=== PATIENT | male | born 1960 | race Caucasian/White ===

== ENCOUNTER 2024-08-17 15:35 | Emergency (ER) | payer BC ==
[~2024-08-17] VITALS: Ht 188 cm; Wt 71.7 kg
[2024-08-17 15:42] VITALS: TEMP 98
[2024-08-17] MEDS ORDERED: SULF1TAB48 PO (16:09)
[2024-08-17] MEDS ORDERED: BACI/NEOM/POLY B OINT PKT 1 UDPKT PACKET ONE (16:28)
[2024-08-17] MEDS: BACI/NEOM/POLY B OINT PKT 1 UDPKT PACKET TP ONE (16:31)
[2024-08-17 16:40] VITALS: BP 110/64; O2SAT 98
== END 2024-08-17 16:40 | disposition home or self-care (01) ==
LOC: ER 15:41
DX: S51.802A Unspecified open wound of left forearm, initial encounter (principal); X58.XXXA Exposure to other specified factors, initial encounter; Y93.89 Activity, other specified; Y92.89 Other specified places as the place of occurrence of the external cause; Y99.8 Other external cause status
CPT/HCPCS: 99283; A6403